=== PATIENT | male | born 1990 | race American Indian/Alaskan Native ===

== ENCOUNTER 2017-05-29 20:23 | Emergency (ER) | payer OTHER ==
--- NOTE | 2017-05-29 21:05 | EDM.PDOC ---
ED HPI GENERAL MEDICAL PROBLEM - General Chief Complaint: Head Injury Stated Complaint: POSS ARM INJURY Time Seen by Provider: 05/29/17 20:33 Source of Information: Reports: Patient History Limitations: Reports: No Limitations - History of Present Illness INITIAL COMMENTS - FREE TEXT/NARRATIVE: The patient states that he slipped on ice and fell around 17:00 today, striking first his head, but with most of his weight landing on his left forearm. The patient states that he did not lose consciousness, and is not complaining of a head injury. He presents with pain to his mid left ulna. He wants to make sure that there is no fracture. No prior left ulna injury. The patient does not have a PCP. Head Pain Score (Numeric/FACES): 4 Left Arm Pain Score (Numeric/FACES): 6 - Related Data Allergies Allergy/AdvReac Type Severity Reaction Status Date / Time No Known Allergies Allergy Verified 05/29/17 20:33 Home Meds: Home Meds . [No Known Home Meds] 05/29/17 [History] Past Medical History - Past Surgical History HEENT Surgical History: Reports: Tonsillectomy Musculoskeletal Surgical History: Reports: Other (See Below) (ACL repair) Social & Family History - Tobacco Use Smoking Status *Q: Never Smoker - Caffeine Use Caffeine Use: Reports: Soda - Alcohol Use Alcohol Use History: Yes Alcohol Use Frequency: Socially - Recreational Drug Use Recreational Drug Use: Yes Drug Use in Last 12 Months: No Recreational Drug Type: Reports: Marijuana/Hashish (last smoked 2010) - Living Situation & Occupation Living situation: Reports: , with Spouse, Other (2 roomates) Occupation: Employed (regional driver) ED ROS GENERAL - Review of Systems Review Of Systems: ROS reveals no pertinent complaints other than HPI. ED EXAM, HEAD INJURY - Physical Exam Exam: See Below Exam Limited By: No Limitations General Appearance: Alert, WD/WN, No Apparent Distress Extremities: Other (No visible abnormality to the left forearm, such as swelling , erythema, ecchymosis, or abrasion, however, the patient is tender to palpation over the mid left ulna. No tenderness to the radius. Pain is induced in his left forearm with supination. Normal ROM to the left wrist without difficulty, and FROM to the left elbow without difficulty. Neurovascular status of the left upper extremity is intact.) Course - Vital Signs Last Recorded V/S: Last Vital Signs Temp 37.6 C 05/29/17 20:29 Pulse 97 05/29/17 20:29 Resp 19 05/29/17 20:29 BP 125/69 05/29/17 20:29 Pulse Ox - Orders/Labs/Meds Orders: Active Orders 24 hr Category Date Time Status Forearm 2V Lt [CR] Stat Exams 05/29/17 21:04 Taken - Re-Assessments/Exams Free Text/Narrative Re-Assessment/Exam: 05/29/17 21:05 The patient states that he drove himself here, therefore I could not offer a narcotic pain reliever. The patient states that he has some leftover OxyContin at home. 05/29/17 21:39 2-view radiographs of the left forearm appear to be normal. No fractures or dislocations identified. Formal read per the Radiologist pending. 05/29/17 21:42 X-ray results discussed with the patient. As above, no fractures to his left forearm. The patient likely bruised the periosteum. Treatment is rest and ibuprofen. Departure - Departure Time of Disposition: 21:42 Disposition: Home, Self-Care 01 Condition: Good Clinical Impression: Contusion of left forearm - Discharge Information Instructions: Contusion, [id number] Referrals: PCP,None [Primary Care Provider] - Forms: ED Department Discharge Additional Instructions: You were seen in the emergency room after slipping on ice and falling onto your left forearm. Workup in the ER included x-rays of the left forearm, which returned as normal. No broken bones or dislocations. It appears you have bruised your left forearm. Take [id number] Tylenol or ibuprofen as needed for discomfort. You may use your left arm as tolerated. If any other problems, please do not hesitate to return to the ER. - My Orders Last 24 Hours: My Active Orders 05/29/17 21:04 Forearm 2V Lt [CR] Stat - Assessment/Plan Last 24 Hours: My Active Orders 05/29/17 21:04 Forearm 2V Lt [CR] Stat
--- NOTE | 2017-05-30 15:44 | CR ---
Left forearm: Two views of the left forearm were obtained. Comparison: No prior study. No fracture is seen. Incidental spurring calcifications within the distal triceps tendon at the attachment to the olecranon process is seen which appear chronic. No additional bony abnormality is seen. Impression: 1. Incidental findings. Nothing acute is seen. Diagnostic code #2
== END 2017-05-29 21:45 | disposition home or self-care (01) ==
LOC: JD.ED 20:23
DX: S50.12XA Contusion of left forearm, initial encounter (principal); W00.0XXA Fall on same level due to ice and snow, initial encounter
CPT/HCPCS: 73090-26-LT; 73090-LT; 99283

== ENCOUNTER 2020-04-17 09:58 | Emergency (ER) | payer SELFPAY ==
[2020-04-17] MEDS ORDERED: Sodium Chloride 0.9% 1,000 ML IV ONE (10:17)
[2020-04-17] MEDS ORDERED: Sodium Chloride 0.9% 10 ML Syringe FLUSH PRN (10:17)
[2020-04-17] MEDS ORDERED: Ondansetron 4 MG/2 ML SDV IVPUSH ONE (10:18)
--- NOTE | 2020-04-17 10:26 | EDM.PDOC ---
ED HPI GENERAL MEDICAL PROBLEM - General Chief Complaint: Gastrointestinal Problem Stated Complaint: VOMITING/DIARRHEA Time Seen by Provider: 04/17/20 10:10 Source of Information: Reports: Patient History Limitations: Reports: No Limitations, Other (ED vital signs reveal a temp of 98.1, pulse 105, respiratory rate 16, blood pressure 140/92, pulse ox 97% on room air.) - History of Present Illness INITIAL COMMENTS - FREE TEXT/NARRATIVE: 30-year-old male presents emergency department complaints of vomiting and diarrhea. This started at approximately midnight last night and he states has been ongoing since. Has had vomiting and diarrhea approximately every 20 minutes since midnight. Last time that he vomited was about 45 minutes ago. Patient states that he had a steak burrito that was made at home for supper last evening. He does admit to being around his friends child who had gastrointestinal illness last evening. Patient denies fever, cough, or body aches. He states he did have the chills with the episodes of vomiting and diarrhea. States his throat is sore this morning from vomiting so many times. States that he was unable to keep any fluids down. Past medical history is unremarkable. Past surgical history includes a tonsillectomy as a child. - Related Data Allergies Allergy/AdvReac Type Severity Reaction Status Date / Time No Known Allergies Allergy Verified 04/17/20 10:07 Home Meds: Home Meds Ondansetron [Zofran ODT] 4 mg PO Q6H PRN #20 tab.dis 04/17/20 [Rx] Past Medical History - Past Surgical History HEENT Surgical History: Reports: Tonsillectomy Musculoskeletal Surgical History: Reports: Other (See Below) Other Musculoskeletal Surgeries/Procedures:: ACL repair Social & Family History - Tobacco Use Tobacco Use Status *Q: Former Tobacco User Used Tobacco, but Quit: Yes Month/Year Tobacco Last Used: 2011 - Caffeine Use Caffeine Use: Reports: Coffee, Soda - Recreational Drug Use Recreational Drug Use: No - Living Situation & Occupation Living situation: Reports: , with Spouse, Other (2 roomates) Occupation: Employed (driver operator) ED ROS GENERAL - Review of Systems Review Of Systems: Comprehensive ROS is negative, except as noted in HPI. ED EXAM, GI/ABD - Physical Exam Exam: See Below Exam Limited By: No Limitations General Appearance: Alert, WD/WN, No Apparent Distress Ears: Hearing Grossly Normal Throat/Mouth: Normal Voice, No Airway Compromise Head: Atraumatic, Normocephalic Neck: Normal Inspection, Supple, Non-Tender, Full Range of Motion Respiratory/Chest: No Respiratory Distress, Lungs Clear, Normal Breath Sounds, No Accessory Muscle Use, Chest Non-Tender Cardiovascular: Normal Peripheral Pulses, Regular Rate, Rhythm, No Edema, No Murmur GI/Abdominal Exam: Normal Bowel Sounds, Soft, Non-Tender, No Distention (Male) Exam: Deferred Rectal (Males) Exam: Deferred Back Exam: Normal Inspection, Full Range of Motion Extremities: Normal Inspection, Normal Range of Motion, Non-Tender, No Pedal Edema, Normal Capillary Refill Neurological: Alert, Oriented, Normal Cognition Psychiatric: Normal Affect, Normal Mood Skin Exam: Warm, Dry, Intact, Normal Color, No Rash Lymphatic: No Adenopathy Course - Vital Signs Text/Narrative:: 30-year-old male presenting to emergency department complaints of vomiting and diarrhea for about the last 10 hours. States it occurred about every 20 minutes since midnight. Was around a child last evening with gastrointestinal illness. Patient denies abdominal pain. He states his abdominal wall is sore from vomiting, however with palpation he denies any tenderness to any of the 4 quadrants. Denies hematemesis and hematochezia. Patient is tachycardic with a heart rate of 105 so he is likely dehydrated. I have ordered a liter of normal saline to run wide open, Zofran, CBC, CMP and a magnesium level. Last Recorded V/S: Last Vital Signs Temp 98.1 F 04/17/20 10:04 Pulse 105 H 04/17/20 10:04 Resp 16 04/17/20 10:04 BP 140/92 H 04/17/20 10:04 Pulse Ox 97 04/17/20 10:04 - Orders/Labs/Meds Orders: Active Orders 24 hr Category Date Time Status Sodium Chloride 0.9% [Saline Flush] Med 04/17/20 10:17 Active 10 ml FLUSH ASDIRECTED PRN Saline Lock Insert [OM.PC] Stat Oth 04/17/20 10:17 Ordered Medication Orders Sodium Chloride (Saline Flush) 10 ml FLUSH ASDIRECTED PRN PRN Reason: Keep Vein Open Last Admin: 04/17/20 10:25 Dose: 10 ml Documented by: JOAQUIN Labs: Laboratory Tests 04/17/20 04/17/20 Range/Units 10:15 10:15 WBC 16.54 H (4.23-9.07) K/mm3 RBC 5.45 (4.63-6.08) M/mm3 Hgb 18.0 H (13.7-17.5) gm/dl Hct 51.3 H (40.1-51.0) % MCV 94.1 H (79.0-92.2) fl MCH 33.0 H (25.7-32.2) pg MCHC 35.1 (32.2-35.5) g/dl RDW Std Deviation 44.7 H (35.1-43.9) fL Plt Count 227 (163-337) K/mm3 MPV 9.8 (9.4-12.3) fl Neut % (Auto) 91.1 H (34.0-67.9) % Lymph % (Auto) 2.9 L (21.8-53.1) % [place] % (Auto) 5.7 (5.3-12.2) % Eos % (Auto) 0 L (0.8-7.0) Baso % (Auto) 0.1 (0.1-1.2) % Neut # (Auto) 15.07 H (1.78-5.38) K/mm3 Lymph # (Auto) 0.48 L (1.32-3.57) K/mm3 [place] # (Auto) 0.94 H (0.30-0.82) K/mm3 Eos # (Auto) 0.00 L (0.04-0.54) K/mm3 Baso # (Auto) 0.01 (0.01-0.08) K/mm3 Manual Slide Review Abnormal smear Sodium 140 (136-145) mEq/L Potassium 4.2 (3.5-5.1) mEq/L Chloride 101 (98-107) mEq/L Carbon Dioxide 26 (21-32) mEq/L Anion Gap 17.2 H (5-15) BUN 22 H (7-18) mg/dL Creatinine 1.2 (0.7-1.3) mg/dL Est Cr Clr Drug Dosing 96.74 mL/min Estimated GFR (MDRD) > 60 (>60) mL/min BUN/Creatinine Ratio 18.3 H (14-18) Glucose 139 H (74-106) mg/dL Calcium 9.4 (8.5-10.1) mg/dL Magnesium 1.9 (1.8-2.4) mg/dl Total Bilirubin 1.0 (0.2-1.0) mg/dL AST 22 (15-37) U/L ALT 41 (16-63) U/L Alkaline Phosphatase 95 (46-116) U/L Total Protein 8.7 H (6.4-8.2) g/dl Albumin 4.7 (3.4-5.0) g/dl Globulin 4.0 gm/dL Albumin/Globulin Ratio 1.2 (1-2) Meds: Medications Generic Name Dose Route Start Last Admin Trade Name Freq PRN Reason Stop Dose Admin Sodium Chloride 10 ml 04/17/20 10:17 04/17/20 10:25 Saline Flush FLUSH 10 ml ASDIRECTED PRN Administration Keep Vein Open Discontinued Medications Generic Name Dose Route Start Last Admin Trade Name Freq PRN Reason Stop Dose Admin Sodium Chloride 1,000 mls @ 999 mls/hr 04/17/20 10:17 04/17/20 10:25 Normal Saline IV 04/17/20 11:17 999 mls/hr ONETIME ONE Administration Ondansetron HCl 4 mg 04/17/20 10:18 04/17/20 10:25 Zofran IVPUSH 04/17/20 10:19 4 mg ONETIME ONE Administration - Re-Assessments/Exams Free Text/Narrative Re-Assessment/Exam: 04/17/20 10:52 Labs reveal a WBC of 16.54, hemoglobin 18.0, hematocrit 51.3, neutrophil percentage 91.1, lymphocyte 2.9, sodium 140, potassium 4.2, carbon dioxide 26, a nion gap 17.2, BUN 22, creatinine 1.2 magnesium 1.9 Elevated WBC and H&H likely due to dehydration and stress response and viral infection. 04/17/20 11:35 After receiving a liter of IV fluids and 4 mg of Zofran the patient reports feeling much better. He will be discharged to home with a prescription for Zofran ODT. Departure - Departure Time of Disposition: 11:35 Disposition: Home, Self-Care 01 Condition: Good Clinical Impression: Gastroenteritis Clinical Impression: (Ruled Out): Viral gastroenteritis - Discharge Information Prescriptions: Ondansetron [Zofran ODT] 4 mg PO Q6H PRN #20 tab.dis PRN Reason: Nausea/Vomiting Instructions: Viral Gastroenteritis, Adult, [id number], Nausea and Vomiting, Adult, [id number] Referrals: PCP,None [Primary Care Provider] - Forms: ED Department Discharge Additional Instructions: You were seen in the emergency department today with complaints of nausea, vomiting, and diarrhea. Labs were completed and they were unremarkable for infection however you did appear slightly dehydrated. At the time of presenting to the emergency department your vomiting had stopped and it had been approximately 45 minutes since he last vomited. This is likely due to viral gastroenteritis. Recommend that you drink only clear liquids for the next 24 hours and then advance to a bland diet. Push fluids such as Gatorade or Pedialyte. Take the Zofran every 6 hours as needed for nausea and vomiting. Wait approximately 30 minutes before attempting to eat or drink after taking the medication. Should your condition worsen or change please return to the emergency department. Sepsis Event Note (ED) - Evaluation Sepsis Screening Result: No Definite Risk - Focused Exam Vital Signs: Vital Signs Temp Pulse Resp BP Pulse Ox 04/17/20 10:04 98.1 F 105 H 16 140/92 H 97 - My Orders Last 24 Hours: My Active Orders 04/17/20 10:17 Sodium Chloride 0.9% [Saline Flush] 10 ml FLUSH ASDIRECTED PRN Saline Lock Insert [OM.PC] Stat - Assessment/Plan Last 24 Hours: My Active Orders 04/17/20 10:17 Sodium Chloride 0.9% [Saline Flush] 10 ml FLUSH ASDIRECTED PRN Saline Lock Insert [OM.PC] Stat
== END 2020-04-17 11:50 | disposition home or self-care (01) ==
LOC: JD.ED 09:58
DX: K52.9 Noninfective gastroenteritis and colitis, unspecified (principal); R00.0 Tachycardia, unspecified; Z87.891 Personal history of nicotine dependence
CPT/HCPCS: 36415; 80053; 83735; 85025; 96374; 99284; J2405; J7030; 99283